=== PATIENT | female | born 1980 | race Two or more races ===

== ENCOUNTER 2021-08-16 11:04 | Emergency (ER) | payer SELFPAY ==
[~2021-08-16] VITALS: Ht 162.6 cm; Wt 68.0 kg
[2021-08-16] MEDS ORDERED: LIDOCAINE 1% HCL (LOCAL ANESTH.) INJ 20ML MDV IJ ONE ×2 (12:00)
[2021-08-16] MEDS ORDERED: TETANUS-DIPTH-ACEL PERTUSSIS 0.5ML SYR Tdap IM ONE (12:00)
[2021-08-16 12:13] VITALS: BP 119/92
[2021-08-16] MEDS ORDERED: CEPHALEXIN 250 MG CAP PO ONE (12:45)
[2021-08-16] MEDS ORDERED: ACETAMINOPHEN 325 MG TAB PO ONE (12:45)
== END 2021-08-16 12:52 | disposition home or self-care (01) ==
LOC: ER 11:04
DX: S71.111A Laceration without foreign body, right thigh, initial encounter (principal); S63.501A Unspecified sprain of right wrist, initial encounter; F17.210 Nicotine dependence, cigarettes, uncomplicated; F12.10 Cannabis abuse, uncomplicated; W25.XXXA Contact with sharp glass, initial encounter; Y93.89 Activity, other specified; Y92.89 Other specified places as the place of occurrence of the external cause; Y99.8 Other external cause status
CPT/HCPCS: 12005; 73100; 90471; 90715; 99283; J2001

== ENCOUNTER 2022-01-27 09:09 | Emergency (ER) | payer SELFPAY ==
[~2022-01-27] VITALS: Ht 167.6 cm; Wt 63.5 kg
[2022-01-27 09:14] VITALS: BP 117/86
== END 2022-01-27 14:48 | disposition left against medical advice (07) ==
LOC: ER 09:09 → EDBD 09:09 → ER 14:48
DX: M79.652 Pain in left thigh (principal); Z53.21 Procedure and treatment not carried out due to patient leaving prior to being seen by health care provider